=== PATIENT | male | born 1970 | race Caucasian/White ===

== ENCOUNTER 2019-04-11 11:29 | Emergency (ER) | payer OTHER | END 2019-04-11 12:19 | disposition home or self-care (01) | LOC: NAV ERS 11:29 | DX: S01.01XD Laceration without foreign body of scalp, subsequent encounter (principal) ==

== ENCOUNTER 2019-05-04 10:59 | Emergency (ER) | payer SELFPAY ==
[2019-05-04] MEDS ORDERED: chlordiazePOXIDE HCl 25 MG CAP ONE ×2 (11:49→16:04)
[2019-05-04] MEDS ORDERED: Dextrose 5 %-0.45 % NaCl 1,000 ML ONE (11:50)
[2019-05-04] MEDS ORDERED: Thiamine HCl 200 MG/2 ML VIAL ONE (11:50)
[2019-05-04] MEDS ORDERED: Multivit, Adult Inj 10 ML VIAL ONE (11:52)
[2019-05-04 12:29] LABS: #Lymphocytes 1.4 thou/uL (1.20-3.40); #Monocytes 0.4 thou/uL (0.11-0.59); #Neutrophils 1.7 thou/uL (1.40-6.50); %Basophils 1.3 % (0.0-1.0); %Eosinophils 0.5 % (0.0-10.0); %Monocytes 10.8 % (0.0-10.0); %Neutrophils 48.4 % (42.0-75.0); Hemoglobin 13.7 g/dL (14.0-18.0); Mean Corpuscular HGB CONC 32.8 g/dL (32.0-36.0); Mean Corpuscular Hemoglobin 30.9 pg (27.0-31.0); Mean Corpuscular Volume 94.3 fL (78.0-98.0); Mean Platelet Volume 9.4 fL (7.4-10.4); Platelet Count 152 thou/uL (130-400); RBC Distribution Width 11.9 % (11.5-14.5); Red Blood Cell (RBC) Count 4.42 mill/uL (4.70-6.10); White Blood Cell (WBC) Count 3.6 thou/uL (4.8-10.8)
[2019-05-04 12:50] LABS: ALT (SGPT) 124 U/L (8-55); AST (SGOT) 226 U/L (5-34); Alcohol 292 mg/dL (Less than 10); Alkaline Phosphatase 187 U/L (40-110); Anion Gap 22 mmol/L (10-20); BUN (Urea Nitrogen) 4 mg/dL (8.9-20.6); Bilirubin, Total 0.5 mg/dL (0.2-1.2); Calc. Creatinine Clearance 0 mL/min (70-130); Calcium 9.2 mg/dL (7.8-10.44); Carbon Dioxide 22 mmol/L (22-29); Chloride 99 mmol/L (98-107); Estimated GFR-MDRD Greater than 90; Globulin 2.8 g/dL (2.4-3.5); Glucose 100 mg/dL (70-105); Lipase 98 U/L (8-78); Potassium 4.2 mmol/L (3.5-5.1); Protein, Total 6.8 g/dL (6.0-8.3); Sodium 139 mmol/L (136-145)
== END 2019-05-04 16:53 | disposition home or self-care (01) ==
LOC: NAV ERS 10:59
DX: F10.239 Alcohol dependence with withdrawal, unspecified (principal); F43.10 Post-traumatic stress disorder, unspecified; F31.9 Bipolar disorder, unspecified; Y90.8 Blood alcohol level of 240 mg/100 ml or more; Z79.899 Other long term (current) drug therapy
CPT/HCPCS: 80053; 80307; 83690; 85025; 96365; 96366; J3411; J7042